=== PATIENT | male | born 1980 | race Caucasian/White ===

== ENCOUNTER 2020-07-10 06:24 | Emergency (ER) | payer BC, SELFPAY ==
[2020-07-10 06:26] VITALS: BP 136/89; PULSE 74; RESP 16; TEMP 36.4; O2SAT 94; BMI 40.0
--- NOTE | 2020-07-10 06:43 | EDS_ITS ---
HPI History of Present Illness Chief Complaint: Dizziness Informant: patient Onset/Context/Timing Onset: Hours (a little over 2) Context: Sudden Onset (when rolled out of bed this AM) Timing: Intermittent Quality: spinning dizziness Location: head Current Severity: Mild Maximum Severity: Severe Worsened by: bending over, turning head, changing positions suddenly Relieved by: remaining still Associated Symptoms Associated Symptoms: n/v Narrative Narrative: Patient has been doing well lately, went to bed feeling fine and woke up all of a sudden vertiginous as he rolled out of bed at 4 AM this morning. He denies headache, chest pain, lateralizing neurologic symptoms, earache, ear drainage, tinnitus, decreased hearing, diplopia, or blurry vision or other vision change. No recent injury. No recent medication changes, additions, or deletions, including [id number]. No recent cold symptoms. He has not had Covid, and has not been vaccinated. states she checked his temperature prior to coming here and it was 92, hers was reading normal. The patient felt hot. Now he feels fine, his temperature is 97.6. No treatment prior to coming to the ER. [facility] Medical History Depression Home Medications Vitamin D3 07/10/20 [History Last Taken Unknown] docosahexaenoic acid-epa [Fish Oil (with DHA-EPA)] cap PO 07/10/20 [History Last Taken Unknown] magnesium tab PO 07/10/20 [History Last Taken Unknown] meclizine 25 mg PO 4X/DAY PRN PRN #20 tab 07/10/20 [Rx Last Taken Unknown] ondansetron 8 mg PO Q8H PRN PRN #20 tab 07/10/20 [Rx Last Taken Unknown] sertraline 25 mg PO DAILY 07/10/20 [History Last Taken Unknown] zinc tab PO 07/10/20 [History Last Taken Unknown] Allergy/AdvReac Type Severity Reaction Status Date / Time No Known Allergies Allergy Verified 07/10/20 06:29 Social History Smoking Status: Unknown if ever smoked ROS ROS ED Constitutional Constitutional ED: Denies chills or fever(s) Eyes Eyes: Denies change in vision or diplopia ENT ENT ED: Denies rhinorrhea or sore throat Cardiovascular Cardiovascular: Denies chest pain or palpitations Respiratory/Chest Respiratory/Chest: Denies cough or dyspnea Gastrointestinal Gastrointestinal: Reports nausea and vomiting; Denies abdominal pain or diarrhea Genitourinary Genitourinary ED: Denies dysuria or hematuria Musculoskeletal Musculoskeletal: Denies back pain or neck pain Integumentary Denies abscess or rash Neurologic Neurologic: Reports as per HPI and vertigo; Denies headache(s), paresthesias or weakness Psychiatric Psychiatric: Denies anxiety or suicidal thoughts EXAM Physical Exam Const Vital Signs: 07/10/20 06:26 07/10/20 06:31 Temperature 97.6 F L Temperature Source Oral Pulse Rate 74 Respiratory Rate 16 Respiratory Effort Normal Respiratory Pattern Normal Blood Pressure 136/89 H Blood Pressure Mean 104 Pulse Ox 94 Oxygen Delivery Method Room Air Positive well nourished and well developed General Appearance ED: well developed and NAD HEENT Reports hearing grossly normal bilaterally, external ears normal, TM's clear, moist mucous membranes and moist oral mucous membranes normocephalic and atraumatic Tympanic Membrane ED: Yes TM's clear Throat: posterior oropharynx normal Eyes PERRL and EOMs intact bilaterally Neck full ROM and supple Resp normal respiratory effort and clear to auscultation bilaterally Cardio regular rate, regular rhythm and no murmurs GI non-tender and non-distended Auscultation: normoactive bowel sounds Palpation: soft Back/Spine no CVA tenderness General Back: other FROM Extremity normal to inspection General Extremety ED: Negative for edema, pulses abnormal or tenderness General Extremity: Negative for edema or pulses abnormal Neuro oriented x3, CN's II-XII intact bilaterally and no sensory deficits noted Neuro Narrative: Positive Chinedu-Hallpike to the right only. No rotatory or vertical nystagmus. Sensorium / Orientation: awake and alert Meningeal Signs: no meningeal signs Coordination / Balance: [id number] test normal and [id number]-[id number] test normal Speech: speech normal Motor Exam: strength 5/5 throughout Skin no rashes or lesions noted and no wounds MDM MDM MDM Narrative Medical decision making narrative: History and exam are consistent with peripheral vertigo. I am unable to explain the patient's temperature of 92 at home, but seeing that it is normal here I am not sure we need to do anything about it. It very likely had to do with their use of the thermometer and the fact that the patient was feeling miserable from being vertiginous. His vital signs are normal, he has no abnormal neurologic findings on exam, and he has no risk factors for stroke including the fact that he is a non-smoker. The history and exam are consistent with peripheral vertigo, so I think it is reasonable to treat him as peripheral vertigo empirically, he actually is examining like BPPV. He was given a dose of Ativan here and Reglan, in addition to a meclizine and prescriptions for meclizine and antiemetic. If he has no improvement after 5-7 days he should follow-up with otolaryngology and he was given a referral. Discharge Plan Triage Chief Complaint: Dizziness ED Provider: Dean Low Dx/Rx/DC Orders Clinical Impression: Peripheral vertigo involving right ear Instructions: ED BPV Vertigo, ED Vertigo, Unspecified Prescriptions: New meclizine [meclizine] 25 MG tablet 25 mg PO 4X/DAY PRN PRN (Reason: Dizziness) Qty: 20 RF: 0 ondansetron [ondansetron] 4 MG tablet 8 mg PO Q8H PRN PRN (Reason: Nausea) Qty: 20 RF: 0 No Action sertraline 25 mg Tablet 25 mg PO DAILY RF: 0 zinc Tablet,Chewable PO RF: 0 Fish Oil (with DHA-EPA) Capsule PO RF: 0 magnesium Tablet PO RF: 0 Vitamin D3 RF: 0 Primary Care Provider: Hayley Payne Referrals: Iain Martínez MD [STAFF PHYSICIAN] - 1 Week if not improving Hayley Payne PA [Primary Care Provider] - Disposition Disposition: Home, self care
[2020-07-10] MEDS: Meclizine HCl 25 MG Tablet PO (06:52)
[2020-07-10] MEDS: LORazepam 2 MG/ML Syringe 0.5 MG IV (06:54)
[2020-07-10] MEDS: Metoclopramide 10 MG/2 ML Vial 5 MG IV (06:57)
== END 2020-07-10 07:22 | disposition home or self-care (01) ==
LOC: ED 07:16
PROVIDERS: Emergency Provider Emergency Medicine; PCP Physician Assistant
DX: H81.399 Other peripheral vertigo, unspecified ear (principal); F32.9 Major depressive disorder, single episode, unspecified; W06.XXXA Fall from bed, initial encounter
CPT/HCPCS: 99283; A4216

== ENCOUNTER → 2021-08-21 | Outpatient (CLI) | payer BC, SELFPAY ==
--- NOTE | 2021-08-21 08:15 | VAS_PTH ---
PATIENT: CHADWICK SOUZA LOC: [facility] U#:[id number] AGE/SX: 40/M ROOM: RE08/21/[address]: Dr. Noe Ace MD : 1980 BED: DIS: 08/21/2021 SPEC #: [id number] RECD: 08/21/21 09:44 STATUS: SU JATINDER #: [id number] AMANDA: 08/21/21 08:[address]: Noe Ace DEPT: SURGICAL PATHOLOGY RECD BY: Leo Tran ENTERED: 08/21/21 10:52 SP TYPE: VAS OTHR DR: EVITA Patel Tissues: A - Vas deferens, NOS B - Vas deferens, NOS Procedures: Surgery Specimen Level II HEADER OPERATION: Bilateral partial vasectomy PRE-OP DIAGNOSIS: Sterilization TISSUE SUBMITTED: A ? Right vas deferens, B ? Left vas deferens MICROSCOPIC DIAGNOSIS A. Right vas deferens, partial vasectomy: Completely transected segment of vas deferens, no pathologic diagnosis. B. Left vas deferens, partial vasectomy: Completely transected segment of vas deferens, no pathologic diagnosis. KENYA:shoshana 08/25/2021 MICROSCOPIC DESCRIPTION Slides are reviewed. GROSS DESCRIPTION A - Received is one container designated right vas deferens. The specimen consists of a tubular segment of madrigal soft tissue measuring 1 cm in length and 0.2 cm in diameter. The specimen is sectioned and submitted entirely in one cassette. B - Received is one container designated left vas deferens. The specimen consists of a tubular segment of madrigal soft tissue measuring 1.5 cm in length and 0.2 cm in diameter. The specimen is sectioned and submitted entirely in one cassette. / KENYA:shoshana 08/21/2021 TC:[address] [facility]: [id number] [id number]
== END | disposition home or self-care (01) ==
LOC: LABSPEC 09:52
PROVIDERS: PCP Physician Assistant; Referring Provider Surgery; Visit Provider Surgery
DX: Z30.2 Encounter for sterilization (principal)
CPT/HCPCS: 88302